=== PATIENT | female | born 1960 | race Caucasian/White ===

== ENCOUNTER 2019-08-28 16:52 | Inpatient (IN) | payer BC ==
[~2019-08-28] VITALS: Ht 162.6 cm; Wt 93.2 kg
[~2019-08-28 16:52] MED LIST: AMBIEN10 M1 PO; CIPRO500 MG PO; CYMBALTA60 MG PO; JANUMET 1000 MG1 TA1 PO; LEVEMIR100 U/ML SC; LISINOPRIL/HCTZ1 TA3 PO; LYRICA225 MG PO; NOVOL SC; NOVOLOG FLEX100 U/ML SC
[2019-08-28 17:41] LABS: BASO # 0.1 10*3/uL (0.0-0.1); BASO % 0.5 % (0.0-1.0); EOS # 0.3 10*3/uL (0.0-0.4); EOS % 2.1 % (1.0-4.0); HEMATOCRIT 45.8 % (37.0-47.0); LYMPH # 2.7 10*3/uL (1.3-4.4); LYMPH % 19.5 % (27.0-41.0); MEAN CELL VOLUME 88.9 fl (81.0-99.0); MEAN CORPUSCULAR HGB 28.3 pg (27.0-31.0); MEAN CORPUSCULAR HGB CONC 31.9 g/dl (33.0-37.0); MEAN PLATELET VOLUME 9.6 fl (9.6-12.3); MONO # 1.2 10*3/uL (0.1-1.0); MONO % 8.5 % (3.0-9.0); NEUT # 9.3 10*3/uL (2.3-7.9); NEUT % 67.8 % (47.0-73.0); PLATELET COUNT AUTOMATED 254 10*3/uL (130-400); RED BLOOD COUNT 5.15 10*6/uL (4.10-5.10); WHITE BLOOD COUNT 13.7 10*3/uL (4.8-10.8)
[2019-08-28 17:48] VITALS: BP 157/90
[2019-08-28 17:56] LABS: BILIRUBIN NEGATIVE (NEGATIVE); CLARITY CLEAR (CLEAR); COLOR YELLOW (YELLOW); GLUCOSE NEGATIVE (NEGATIVE); KETONE NEGATIVE (NEGATIVE)
[2019-08-28 17:57] LABS: BACTERIA TRACE; BLOOD NEGATIVE (NEGATIVE); LEUKO ESTERASE NEGATIVE (NEGATIVE); NITRITE NEGATIVE (NEGATIVE); PH 6.5 (5.0-9.0)
[2019-08-28 17:58] LABS: ALBUMIN 2.7 gm/dl (3.1-4.5); ALKALINE PHOSPHATASE 83 U/L (45-117); BUN 20 mg/dl (7-24); CHLORIDE 100 mmol/L (98-107); CREATININE 0.53 mg/dL (0.55-1.02); LIPASE 74 U/L (73-393); POTASSIUM 4.2 mmol/L (3.5-5.1); SGOT/AST 33 IU/L (3-35); SGPT/ALT 54 U/L (12-78); SODIUM 136 mmol/L (136-145); TOTAL PROTEIN 8.1 gm/dL (6.4-8.2)
--- NOTE | 2019-08-28 18:54 | NUR ---
PT TO CT AT THIS TIME.
--- NOTE | 2019-08-28 19:15 | NUR ---
Transfer of care from Onofre peterson.
[2019-08-28 19:30] VITALS: BP 123/75
--- NOTE | 2019-08-28 19:32 | NUR ---
In to see pt at this time.Pt is crying and hysterical because of pain and not being able to see at this time.Emotional support given at this time.Attempted to ask pt about neuro status amd prevoius surgery on right foot and she starts to cry.Pt not able to bend down on right foot at this time and she says she has some numbness before.Pt states she also has some numbness but able to move left foot ok. Pt strong with right and left arm at this time and able to move ok.
--- NOTE | 2019-08-28 20:15 | NUR ---
In to see pt.Pt sitting in chair and is occasional crying but appears more calm at this time.
--- NOTE | 2019-08-28 20:47 | NUR ---
and Prudence in to see pt at this time.
--- NOTE | 2019-08-28 20:58 | NUR ---
in to see pt at this time.Aware that pt was given 5 different medications at this time for pain.Aware that pt is going to be admitted for further evlaution at this time and stated pt never had back surgery.
[2019-08-28 21:53] VITALS: BP 104/64
--- NOTE | 2019-08-28 21:53 | NUR ---
Pt states pain is slightly better and is tolerating snack at this time and she feels better seeing .
[2019-08-28 22:12] VITALS: BP 138/64
--- NOTE | 2019-08-28 22:12 | NUR ---
A 58, admitted to 5E, under the services of DA Morse DO with a diagnosis of INTRACTABLE BACK PAIN. Chief complaint is HAS BEEN IN BACK PAIN ALL DAY. JUST HAD CORTISONE SHOTS IN BACK 5 DAYS AGO AT ANOTHER FACILITY. HX HERNIATED DISC AND SURGERY ON NECK WHICH PATIENT HAS PLATE AND 3 SCREWS IN NECK.. Patient arrived via wheel chair from ER. Monitor applied. Initial assessment completed. Vital signs taken and recorded. DA MORSE DO notified of admission to the 5E unit. Orders received. See assessment for past medical history, medications and allergies. Patient and/or family oriented to unit. [address] visitation policy reviewed. Clothing/patient valuable form completed. RACHEL OVIEDO J
[2019-08-28] MEDS ORDERED: METFORMIN HYD1000 MG PO (22:46)
[2019-08-28] MEDS ORDERED: HUMULIN R500 UNIT/1 SQ (22:49)
[2019-08-28] MEDS ORDERED: TRAMADOL HCL50 MG PO (22:50)
[2019-08-28] MEDS ORDERED: PRAMIPEXOLE D0.25 MG PO (22:53)
--- NOTE | 2019-08-28 22:56 | NUR ---
MORPHINE GIVEN PER ORDER FOR EXTREME SEVERE BACK PAIN PER PT. SEE MAR.
--- NOTE | 2019-08-28 23:10 | NUR ---
DR. GARZA HERE AND EXAMINING PATIENT.
--- NOTE | 2019-08-28 23:55 | NUR ---
PER PT. STILL CRYING OUT IN PAIN. MORPHINE ONLY HELPED FOR A COUPLE MINUTES AND THEN PAIN RETURNED.
[2019-08-29] VITALS: BP 138/64
--- NOTE | 2019-08-29 00:40 | NUR ---
DILAUDID GIVEN PER ORDER FOR SEVERE BACK PAIN IV SLOW PUSH. PATIENT CRYING AND MOANING HAS DECREASED. PATIENT SITTING IN CHAIR.
--- NOTE | 2019-08-29 00:55 | NUR ---
PATIENT SITTING IN CHAIR EYES CLOSED. NO MOANING/CRYING. RESP. EASY AND REG.
--- NOTE | 2019-08-29 01:30 | NUR ---
PT. RESTING EYES CLOSED OCCAS. MILD MOAN NOTED. DILAUDID EFFECTIVE FOR PAIN. K-PAD IN USE TO MID BACK.
[2019-08-29] MEDS ORDERED: HUMULIN R500 UNIT/1 SQ ×2 (01:46)
--- NOTE | 2019-08-29 02:00 | NUR ---
In to assess patient at this time. Complaining of pain in back and legs rated an 8/10. Moaning and unconsolable at this time. Respirations easy and unlabored. Sitting in chair at this time. Will administer norco for pain and continue to monitor.
--- NOTE | 2019-08-29 02:25 | NUR ---
NORCO ADMINISTERED FOR PT C/O 11/01 BACK AND LEG PAIN. PT MOANING IN PAIN. KPAD APPLIED TO AREA. WILL CONTINUE TO MONITOR AND REASSESS. REQUESTING SLEEPING PILL AT THIS TIME.
--- NOTE | 2019-08-29 02:41 | NUR ---
24 hour chart check complete.
--- NOTE | 2019-08-29 03:25 | NUR ---
Pt continues to moan and call out in pain. Erie not effective. Will attempt to call doctor and see if something else can be given.
--- NOTE | 2019-08-29 03:42 | NUR ---
Spoke with Dr. Cervantes regarding contiued pain. States to given morphine as prescribed.
--- NOTE | 2019-08-29 03:45 | NUR ---
Morphine administered for continued pain in back rated an 8/10 on the pain scale. Patient moved to bed and repositioned in attempt to increase comfort. Patient continuing to moan out and scream in discomfort. Encourged to relax and deep breath. Will monitor.
--- NOTE | 2019-08-29 04:55 | NUR ---
Patient still screaming out in pain. Dr. Cervantes notified. Awaiting new orders.
--- NOTE | 2019-08-29 05:44 | NUR ---
MORPHINE ADMINISTERED FOR PT C/O CONTINUE BACK PAIN. WILL MONITOR AND REASSESS.
[2019-08-29 05:47] VITALS: BP 145/81
[2019-08-29 05:48] LABS: MEAN CELL VOLUME 88.4 fl (81.0-99.0); MEAN CORPUSCULAR HGB 28.7 pg (27.0-31.0); MEAN CORPUSCULAR HGB CONC 32.5 g/dl (33.0-37.0); MEAN PLATELET VOLUME 9.8 fl (9.6-12.3); PLATELET COUNT AUTOMATED 289 10*3/uL (130-400); RED BLOOD COUNT 4.98 10*6/uL (4.10-5.10); WHITE BLOOD COUNT 14.7 10*3/uL (4.8-10.8)
[2019-08-29 06:15] LABS: BUN 21 mg/dl (7-24); CHLORIDE 98 mmol/L (98-107); CREATININE 0.59 mg/dL (0.55-1.02); POTASSIUM 4.2 mmol/L (3.5-5.1); SODIUM 132 mmol/L (136-145)
--- NOTE | 2019-08-29 06:38 | NUR ---
Patient still appears to be in pain. Morphine was effective for what seemed to be 30 minutes. Will continue to monitor.
--- NOTE | 2019-08-29 06:38 | NUR ---
Spoke with Dr. Cervantes to clarify orders. States to administer one time dose of vancomycin as ordered.
--- NOTE | 2019-08-29 06:45 | NUR ---
Dr Cervantes notified that 2000mg of Vanc is no longer on my emar. States he will take a look at it.
[2019-08-29 06:48] LABS: TOTAL CELLS COUNTED 100 #CELLS
[2019-08-29 06:49] LABS: PLATELET SUFFICIENCY NORMAL (NORMAL); POLYCHROMASIA SLIGHT
[2019-08-29 08:00] VITALS: BP 135/71
--- NOTE | 2019-08-29 08:06 | NUR ---
PT SCREAMING OUT IN PAIN TO LEGS AND BACK MEDICATED WITH MORPHINE PER ORDERS WILL MONITOR
--- NOTE | 2019-08-29 09:00 | NUR ---
MORPHINE IV NOT EFFECTIVE. PT CRYING.
--- NOTE | 2019-08-29 09:07 | NUR ---
PT SCREAMING OUT, MEDICATED WITH NORCO FOR C/O BACK/LEG PAIN
--- NOTE | 2019-08-29 09:35 | NUR ---
DR BEST ON UNIT AND SEES PT, ORDERS TO FOLLOW.
--- NOTE | 2019-08-29 10:02 | NUR ---
REGULATORY AFFAIRS SPEC UNABLE TO SPEAK WITH THE PATIENT SHE IS IN SEVERE PAIN AT THIS TIME.
--- NOTE | 2019-08-29 10:05 | NUR ---
MEDICATION NOT EFFECTIVE, PT CRYING
--- NOTE | 2019-08-29 10:19 | NUR ---
PT MEDICATED WITH IV ATIVAN PER NOW ORDERS. WILL MONITOR
--- NOTE | 2019-08-29 10:20 | NUR ---
PT MEDICATED WITH TORADOL IV FOR C/O BACK/LEG PAIN. PT SCREAMING/YELLING IN PAIN. WILL MONITOR
--- NOTE | 2019-08-29 10:21 | NUR ---
PT MEDICATED WITH FENTANYL FOR C/O BACK/LEG PAIN, PER ORDERS. WILL MONITOR
--- NOTE | 2019-08-29 11:15 | NUR ---
ATIVAN SOMEWHAT EFFECTIVE. WILL MONITOR
--- NOTE | 2019-08-29 11:20 | NUR ---
TORADOL SOMEWHAT EFFECTIVE PER PT, PT CRYING. WILL MONITOR
--- NOTE | 2019-08-29 11:20 | NUR ---
FENTANYL NOT EFFECTIVE PER PT. PT CRYING WILL MONITOR
--- NOTE | 2019-08-29 13:11 | NUR ---
DR GUTIERREZ IN TO SEE PT, PT RESTING IN THE CHAIR. CHAIR ALARM ON PT FOR SAFETY. WILL MONITOR
--- NOTE | 2019-08-29 14:35 | NUR ---
DR DICKERSON CALLED RE: PT YELLING OUT WITH PAIN IN HER LEGS.
--- NOTE | 2019-08-29 14:42 | NUR ---
DR GUTIERREZ IN TO SEE PT. PT TO BE TRANSFERRED.
--- NOTE | 2019-08-29 14:44 | NUR ---
PT STATES TYLENOL NOT EFFECTIVE.
--- NOTE | 2019-08-29 14:53 | NUR ---
PT SET OFF BODY ALARM, PT AMBULATED TO [place]. PT SCREAMING AND CRYING. PT IN ETHAN CHAIR AT NURSES STATION. DR GUTIERREZ AT DESK AND AWARE.
--- NOTE | 2019-08-29 15:13 | NUR ---
PT MEDICATED WITH FENTANYL PER ORDERS. PT SITTING IN CHAIR AT NURSES STATION SCREAMING OUT IN PAIN. WILL MONITOR
--- NOTE | 2019-08-29 15:22 | NUR ---
[facility] ONE CALL NOTIFIED THAT BED IS READY AND PT CAN BE SENT. DR GUTIERREZ NOTIFIED.
--- NOTE | 2019-08-29 15:35 | NUR ---
pt called and notified of trnsfer to [facility], states understanding.
--- NOTE | 2019-08-29 15:38 | NUR ---
PT STATES PAIN MEDICATION IS "STARTING TO WORK" WILL MONITOR. RETURNED TO ROOM TO PREPARE FOR TRANSFER.
--- NOTE | 2019-08-29 15:56 | NUR ---
Discharge instructions reviewed with patient/family. Patient receptive and verbalizes understanding. Follow-up care arranged. Written instructions given to patient/family. ERIC AMADOR
--- NOTE | 2019-08-29 15:57 | NUR ---
[facility] HERE. PT TRANSFERRED TO [facility].
--- NOTE | 2019-08-29 16:09 | NUR ---
REPORT CALLED TO [facility].
== END 2019-08-29 15:57 | disposition short-term general hospital (02) | DRG 551 ==
LOC: ED 16:52 → EDHOLD 20:51 → 5E 21:22
PROVIDERS: Physician Assistant; Student in an Organized Health Care Education/Training Program; ADMIT Internal Medicine
DX: M54.5 Low back pain (principal); E43 Unspecified severe protein-calorie malnutrition; R65.10 Systemic inflammatory response syndrome (SIRS) of non-infectious origin without acute organ dysfunction; E66.9 Obesity, unspecified; E11.618 Type 2 diabetes mellitus with other diabetic arthropathy; I10 Essential (primary) hypertension; E78.5 Hyperlipidemia, unspecified; M48.00 Spinal stenosis, site unspecified; M19.90 Unspecified osteoarthritis, unspecified site; F41.9 Anxiety disorder, unspecified; G89.29 Other chronic pain; G25.81 Restless legs syndrome; R00.0 Tachycardia, unspecified; Z79.899 Other long term (current) drug therapy; Z79.4 Long term (current) use of insulin; Z82.49 Family history of ischemic heart disease and other diseases of the circulatory system; Z83.3 Family history of diabetes mellitus; Z90.710 Acquired absence of both cervix and uterus; Z85.42 Personal history of malignant neoplasm of other parts of uterus; Z68.35 Body mass index [BMI] 35.0-35.9, adult

== ENCOUNTER 2021-12-28 02:34 | Emergency (ER) | payer BC ==
[~2021-12-28] VITALS: Ht 167.6 cm; Wt 77.1 kg
[~2021-12-28 02:34] MED LIST changes: +HUMULIN R500 UNIT/1 SQ; +METFORMIN HYD1000 MG PO; +NAPROSYN500 MG PO; +PRAMIPEXOLE D0.25 MG PO; +TRAMADOL HCL50 MG PO; +ZESTRIL5 MG PO
[2021-12-28 05:08] LABS: URINE AMPHETAMINES < 1000 (1000ng/ml); URINE BARBITURATES < 200 (200ng/ml); URINE BENZODIAZEPINES < 200 (200ng/ml); URINE CANNABINOIDS (THC) < 50 (50ng/ml); URINE COCAINE < 300 (300ng/ml); URINE METHADONE < 300 (300ng/ml); URINE OPIATES < 300 (300ng/ml)
[2021-12-28 05:13] LABS: URINE PHENCYCLIDINE < 25 (25ng/ml)
[2021-12-28 06:24] LABS: BASO % 0.2 % (0.0-1.0); EOS # 0.1 10*3/uL (0.0-0.4); EOS % 2.1 % (1.0-4.0); HEMATOCRIT 39.6 % (37.0-47.0); LYMPH % 19.8 % (27.0-41.0); MEAN CORPUSCULAR HGB 27.9 pg (27.0-31.0); MEAN CORPUSCULAR HGB CONC 31.3 g/dl (33.0-37.0); MEAN PLATELET VOLUME 10.1 fl (9.6-12.3); MONO # 0.4 10*3/uL (0.1-1.0); MONO % 8.7 % (3.0-9.0); NEUT # 3.3 10*3/uL (2.3-7.9); NEUT % 68.8 % (47.0-73.0); PLATELET COUNT AUTOMATED 141 10*3/uL (130-400); RED BLOOD COUNT 4.45 10*6/uL (4.10-5.10); RED CELL DISTRI WIDTH 14.4 % (0-14.5); WHITE BLOOD COUNT 4.9 10*3/uL (4.8-10.8)
[2021-12-28 06:41] LABS: ALKALINE PHOSPHATASE 69 U/L (45-117); BUN 12 mg/dl (7-24); CHLORIDE 104 mmol/L (98-107); CREATININE 0.83 mg/dL (0.55-1.02); SGOT/AST 21 IU/L (3-35); SGPT/ALT 21 U/L (12-78); SODIUM 140 mmol/L (136-145); TOTAL PROTEIN 6.7 gm/dL (6.4-8.2)
== END 2021-12-28 10:05 | disposition home or self-care (01) ==
LOC: ED 02:34
PROVIDERS: Internal Medicine
DX: T40.601A Poisoning by unspecified narcotics, accidental (unintentional), initial encounter (principal); Y92.89 Other specified places as the place of occurrence of the external cause

== ENCOUNTER → 2022-10-19 | Outpatient (CLI) | payer BC ==
[2022-10-23 15:15] LABS: FIBROSIS STAGE SEE SCANNED REORT
== END | disposition home or self-care (01) ==
LOC: LAB 10:09
PROVIDERS: ATTEND Physician Assistant Medical
DX: R93.89 Abnormal findings on diagnostic imaging of other specified body structures (principal)

== ENCOUNTER → 2024-10-10 | Outpatient (CLI) | payer MEDICARE ==
[~2024-10-10] MED LIST changes: +CEFAZOLIN2 GM/20 ML IV; +CELECOXIB200 M1 PO; +ELIQUIS5 M1 PO; +FUROSEMIDE40 MG PO; +HUMALOG100 UNIT/1 SC; +HYDROCODONE-AC1 EAC1 PO; +IBU800 M1 PO; +LACTULOSE10 GM/151 PO; +LINZESS290 MC1 PO; +LISINOPRIL10 M1 PO; +MAGNESIUM OXID400 MG PO; +MOUNJARO5 MG/0.51 SQ; +PANTOPRAZOLE SO40 MG PO; +SPIRONOLACTONE50 M1 PO; +VISTARIL25 MG PO; +VITAMIN D3125 MC1 PO
[2024-10-10 11:53] LABS: BUN 15 mg/dl (9-23); LDL CHOLESTEROL 101 mg/dL (9-159)
[2024-10-10 11:59] LABS: SGPT/ALT < 7 U/L (5-49)
== END | disposition home or self-care (01) ==
LOC: LAB 10:46
PROVIDERS: ATTEND Family Medicine
DX: E11.40 Type 2 diabetes mellitus with diabetic neuropathy, unspecified (principal)